=== PATIENT | female | born 1990 | race Asian ===

== ENCOUNTER 2017-05-25 00:27 | Emergency (ER) | payer BC ==
[2017-05-25 02:16] VITALS: BP 120/74
== END 2017-05-25 02:16 | disposition home or self-care (01) ==
LOC: ED 00:27
DX: S83.92XA Sprain of unspecified site of left knee, initial encounter (principal); W17.89XA Other fall from one level to another, initial encounter; Y93.89 Activity, other specified; Y99.8 Other external cause status; Y92.89 Other specified places as the place of occurrence of the external cause
CPT/HCPCS: Q0092